=== PATIENT | female | born 1960 | race Caucasian/White ===

== ENCOUNTER → 2020-11-07 | Outpatient (CLI) | payer OTHER ==
[~2020-11-07] MED LIST: NOHOMEMEDICATIONS; NORCO 5-325 TA1 EACH PO; PROTONIX40 MG PO
== END ==
LOC: CAT 08:27
PROVIDERS: ATTEND Family Medicine
DX: Z13.6 Encounter for screening for cardiovascular disorders (principal); E78.00 Pure hypercholesterolemia, unspecified; I25.10 Atherosclerotic heart disease of native coronary artery without angina pectoris

== ENCOUNTER → 2021-01-27 | Outpatient (CLI) | payer OTHER | LOC: ULTRA 09:39 | PROVIDERS: ATTEND Nurse Practitioner | DX: R60.0 Localized edema (principal) ==